=== PATIENT | male | born 1945 | race Caucasian/White ===

== ENCOUNTER 2017-05-20 11:19 | Day surgery (SDC) | payer MEDICARE, OTHER ==
--- NOTE | ~2017-05-20 | OP ---
Record Of Operation [facility] [address] [place] [address] NAME: LAWSON MUHAMMAD : 47 STATUS : [facility]#: [id number] AGE: 71 ADM/REG DATE : 05/20/17 MR#: [id number] REPORT SERV DATE: 05/20/17 DICTATED BY: JOSE KATHLEEN III DATE: 05/20/17 REPORT STATUS : Draft TRANSCRIBED BY: MODL DATE: 05/20/17 DATE OF PROCEDURE: 05/20/2017 PROCEDURE: ESWL to left renal calculus. PREOPERATIVE DIAGNOSIS: Left renal calculus. POSTOPERATIVE DIAGNOSIS: Left renal calculus. ANESTHESIA: General. DESCRIPTION OF PROCEDURE: Following induction of adequate general anesthesia, the patient was placed in the dorsal lithotomy position, prepped and draped in a sterile fashion. Stone was placed across areas of both monitor screens. 2500 shocks were applied at a power level of 4. The stone appeared to fragment nicely. He tolerated the procedure well. He will be taken to the recovery room. OB/MODL Jose Kathleen III, M.D. / [id number] CC: Cami Ernst III, M.D.
[~2017-05-20 11:19] MED LIST: ASAB PO; BACDS PO; CALTRA600D PO; CIP5 PO; CIPRO PO; CORDARONE PO; COZ50 PO; COZAAR100 MG PO; FLOMAX4 PO; GLUCPH PO; LOP25 PO; LOSARTAN PO; NORCO1 TA1 PO; NORV5 PO; OCEAN NAS; SEV VITAMINS PO; SORINE80 MG PO; VITAMIN D OTC PO; ZETIA PO
[2017-05-20 12:26] LABS: ASCORBIC ACID (UR NOT ORDER) NEG (NEG); BILIRUBIN, URINE NEGATIVE (NEG); KETONE, URINE NEGATIVE (NEG); LEUKOCYTE ESTERASE(NOT OR NEG (NEG); WBC (NOT ORDERED) (RFLEX) 3 (0-5)
[2017-05-20 12:44] LABS: PARTIAL THROMBO TIME 28.1 SEC (22.5-37.2); PROTIME (NOT ORD) 12.9 SEC (12.0-14.5)
== END 2017-05-20 17:38 | disposition home or self-care (01) ==
LOC: SDC 11:19
PROVIDERS: Urology
PROC: 0TF4XZZ Fragmentation in Left Kidney Pelvis, External Approach (ICD-10-PCS; principal; 2017-05-20 13:30)
DX: N20.0 Calculus of kidney (principal); I10 Essential (primary) hypertension; E78.5 Hyperlipidemia, unspecified; I25.10 Atherosclerotic heart disease of native coronary artery without angina pectoris; K21.9 Gastro-esophageal reflux disease without esophagitis; E11.9 Type 2 diabetes mellitus without complications; F17.290 Nicotine dependence, other tobacco product, uncomplicated; Z95.1 Presence of aortocoronary bypass graft; I25.2 Old myocardial infarction; Z98.890 Other specified postprocedural states; N40.0 Benign prostatic hyperplasia without lower urinary tract symptoms; H91.90 Unspecified hearing loss, unspecified ear; E78.00 Pure hypercholesterolemia, unspecified
CPT/HCPCS: 50590; 74000; 81001; 82962; 85610; 85730; J2250; J2405; J2710; J3010